=== PATIENT | male | born 1975 | race Caucasian/White ===

== ENCOUNTER 2019-11-09 13:29 | Day surgery (SDC) | payer OTHER ==
[~2019-11-09] VITALS: Ht 177.8 cm; Wt 160.8 kg
[2019-11-09] MEDS ORDERED: PERCOCET 325 MG1 TA2 PO (15:55)
[2019-11-09 16:50] VITALS: BP 116/65; PULSE 72; TEMP 97.9
[2019-11-09 17:00] VITALS: BP 126/77; PULSE 72
[2019-11-09 17:15] VITALS: BP 114/76; PULSE 72
[2019-11-09 17:30] VITALS: BP 132/63; PULSE 72
[2019-11-09 17:45] VITALS: BP 129/73; PULSE 68
[2019-11-09 19:56] VITALS: BP 158/98; PULSE 59; TEMP 98.5
--- NOTE | 2019-11-09 20:07 | NUR ---
PT RETURNED FROM PACU INTO BAY#2. A/OX3 AND SLEEPY. DOES AROUSE TO NAME. LUNGS CLEAR, DIMINISHED, HRR, BOWEL SOUNDS PRESENT AND HYPO ACTIVE. RATES PAIN AT A '2' ON 0-10 SCALE AND STATES, 'I HAVE A HIGH PAIN TOLERANCE'. HIS GIRLFRIEND, BRIAN IN THE ROOM WITH HIM AND TALKING WITH HIM. STATES HE WOULD LIKE APPLE JUICE AND ANALY CRACKERS. WILL CONT TO MONITOR PROGRESS.
--- NOTE | 2019-11-09 20:10 | NUR ---
PT TOLERATING CRACKERS, PUDDING AND APPLE JUICE. STATES PAIN WITH MOVEMENT AND COUGHING. PT O2 SATS MAINTAINED ON 2L @ 93%. DENIES SOB. DOES STATE THAT HE HAS SLEEP APNEA AND USES A CPAP AT HOME. WILL CONT TO MONITOR PROGRESS.
--- NOTE | 2019-11-09 20:14 | NUR ---
PT CONT AT O22L PER NC. WHEN THE CANNULA IS REMOVED HE DROPS DOWN TO 89 WHILE SLEEPING. PT ENCOURAGED TO TAKE DEEP BREATHS AND COUGH WHILE AWAKE. WILL CONT TO MONITOR PROGRESS.
--- NOTE | 2019-11-09 20:16 | NUR ---
PT UP TO VOID WITHOUT DIFFICULTY. RATES PAIN AT A '5' ON 0-10 SCALE WITH ACTIVITY. O2 CONT AT 2L TO MAINTAIN SATS. DRAINAGE, SATURATING THE BANDAID NOTED AT THE UPPER ABD INCISION. BANDAID REMOVED CLEANED WITH ALCOHOL WIPE AND ANOTHER BANDAID APPLIED. WILL NOTIFY DR ORO OF SATS AND ABD DRAINAGE. NO ACTIVE DRAINAGE NOTED.
--- NOTE | 2019-11-09 20:20 | NUR ---
DRAINAGE NOTED AT UMBILICAL DRESSING SITE WHILE PT WAS STANDING AT BEDSIDE. SMALL AMOUNT OF RED DRAINAGE NOTED. DR ORO NOTIFIED OF O2 SATS AND DRAINAGE AT SURGICAL SITES. DR ORO ASKED THAT THEY BE REINFORCED WITH GAUZE AND ADHESIVE PRESSURE BANDAGE. O2 SATS CURRENTLY 94-96% WHILE STANDING. PT STATES HE WANTS TO GO HOME AND WILL NOT STAY THE NIGHT. DR ORO NOTIFIED. OK TO DC TO HOME. LUNGS CLEAR AND DIMINISHED. BOWEL SOUNDS NOTED. HRR. IV DC'D TO RIGHT HAND. DC INSTRUCTIONS GIVEN. PT DC'D TO FAMILY VEHICLE, GIRLFRIEND DRIVING.
== END 2019-11-09 20:32 | disposition home or self-care (01) ==
LOC: SDCO 13:29
DX: K81.1 Chronic cholecystitis (principal); G47.33 Obstructive sleep apnea (adult) (pediatric); E66.01 Morbid (severe) obesity due to excess calories; Z68.43 Body mass index [BMI] 50.0-59.9, adult; I11.9 Hypertensive heart disease without heart failure; K21.9 Gastro-esophageal reflux disease without esophagitis; F32.9 Major depressive disorder, single episode, unspecified; M19.019 Primary osteoarthritis, unspecified shoulder; G56.00 Carpal tunnel syndrome, unspecified upper limb; Z20.828 Contact with and (suspected) exposure to other viral communicable diseases; Z80.9 Family history of malignant neoplasm, unspecified; Z79.899 Other long term (current) drug therapy; Z87.891 Personal history of nicotine dependence
CPT/HCPCS: J0330; J0690; J1100; J1720; J1885; J2405; J2704; J2765; J3010

== ENCOUNTER → 2019-11-24 | Outpatient (CLI) | payer OTHER ==
[~2019-11-24] MED LIST: PERCOCET 325 MG1 TA2 PO
== END ==
LOC: COL.RAD 08:01
DX: M25.552 Pain in left hip (principal)
CPT/HCPCS: A9585; Q9967